=== PATIENT | female | born 1980 | race Caucasian/White ===

== ENCOUNTER → 2020-10-20 15:17 | Outpatient (CLI) | payer OTHER, SELFPAY ==
[2020-10-20 15:51] LABS: COVID19 -Nasal RAPID Negative (Negative)
== END ==
PROVIDERS: Visit Provider Obstetrics & Gynecology
DX: Z01.812 Encounter for preprocedural laboratory examination (principal); Z20.822 Contact with and (suspected) exposure to COVID-19
CPT/HCPCS: 87635

== ENCOUNTER 2020-10-21 06:45 | Day surgery (SDC) | payer OTHER, SELFPAY ==
[2020-10-21] VITALS (16 sets, daily range): BP systolic 117–146; BP diastolic 57–93; PULSE 55–82; RESP 12–76; TEMP 35.9–36.9; O2SAT 85–100; BMI 26.9
--- NOTE | 2020-10-21 | PATH_ITS ---
[facility] Accession Number: [id number] . 01 Material submitted: . uterus - UTERUS, BILATERAL FALLOPIAN TUBES AND OVARIES . 02 Diagnosis: Uterus, Bilateral Fallopian Tubes and Ovaries, Supracervical Hysterectomy and Bilateral Salpingo-oophorectomy: 1. Bilateral ovaries with hemorrhagic corpus luteum cysts. 2. Inactive/noncycling endometrium. 3. Bilateral fallopian tubes with no diagnostic abnormality. 4. No evidence of atypia or malignancy. [facility] 10/26/2020 1409 Local . 02 Electronically signed: . Linda Ayoub MD, Pathologist NPI- [id number] . 01 Gross description: . The specimen is received in formalin, labeled uterus, bilateral tubes and ovaries, and consists of a 93 g, fragmented uterus measuring 10.0 x 8.0 x 4.0 cm in aggregate. A cervix is not identified. The serosa is mukherjee-pink and smooth. The endometrium is mukherjee-pink and measures 0.1 cm in thickness. The myometrium is mukherjee-pink and trabeculated. Also received are bilateral fallopian tubes and ovaries. One ovary measures 3.5 x 1.2 x 1.0 cm. The other ovary measures 3.8 x 2.2 x 1.5 cm. The external surfaces are mukherjee and cerebriform. The larger ovary has an area of disruption. Sectioning reveals multiple cysts ranging from 0.2 cm to 2.2 cm. The larger ovary displays the largest cyst, which has a mukherjee-pink, granular inner lining. No papillary excrescences are identified. The fallopian tube measures 5.5 cm in length by 1.0 cm in diameter and 6.2 cm in length by 1.2 cm in diameter. The serosa is mukherjee-pink and smooth with multiple paratubal cysts measuring 0.1 cm. Sectioning reveals a mukherjee mucosa and a stellate lumen measuring up to 0.5 cm in diameter. Tack Cleaner sections are submitted: . A1: Presumed lower uterine segment. A2-A3: One full-thickness bisected cross-section. A4: Endomyometrium. A5: Tack Cleaner smaller ovary. A6-A7: Tack Cleaner attached fallopian tube, central cross-sections and bisected fimbria. A8-A10: Tack Cleaner cyst from larger ovary. A11-A13: Attached fallopian tube, central cross-sections, and bisected fimbria. ([id number]) /FRR 10/23/2020 [facility]9 Local . 02 Pathologist provided ICD-10: C50.912 . 02 CPT . 273897 Performed at: 01 [facility] [address] [id number] MD Bogdan Gamble MD Phone: [phone] Performed at: 02 [facility] [address] [place] [id number] MD Linda Ayoub MD Phone: [phone]
[2020-10-21] MEDS: ACETAMINOPHEN 325 MG TABLET 975 MG PO (07:21)
[2020-10-21] MEDS: LACTATED RINGERS 1,000 ML 42 ML IV ×2 (07:40→09:27)
--- NOTE | 2020-10-21 07:47 | PM.PREOP ---
Pre-operative Note COVID-19 COVID-19 status: Negative Result date/Date tested (Pos, Neg/Pending): 10/20/20 Interval Note History & Physical reviewed/Exam performed by Physician: No Changes to H&P: No H&P completed within 30 days and has changed as indicated here:: 10/20/20
[2020-10-21] MEDS: CEFAZOLIN 2 GM/100 ML FROZ.PIGGY IV (07:50)
[2020-10-21] MEDS: BUPIVACAINE 0.25% W/ EPI (PF) 10 ML VIAL 30 ML INJ (08:32)
[2020-10-21] MEDS: ROPIVACAINE 0.2% PF 2 MG/ML 10ML AMP 20 ML INJ (08:34)
--- NOTE | 2020-10-21 08:50 | SUR.OPER ---
Lithotomy on padded OR bed. [place] Pad Positioner under torso. Head on pillow, arms padded and tucked at sides. Legs secured in padded yellow fins stirrups.
--- NOTE | 2020-10-21 09:40 | P.OP_ITS ---
Operative Date/Time/Diagnoses Date of procedure: 10/21/20 Time of procedure: 09:41 Pre-op diagnosis: Breast cancer ER/FL positive On tamoxifen therapy Post-op diagnosis: same Procedure & Clinicians Procedure: Procedures Operation Date: 10/21/20 07:45 Actual Procedures Side Surgeon p Laparoscopic Supracervical Hysterectomy W/Bilateral Salpingo-oophorectomy Raven Shah MD Indications: Breast cancer ER/FL positive On tamoxifen therapy Surgeon: Raven Shah Healthcare Technician: Lana Stockton Anesthesia Type: General and Local Operative Notes Findings: Seven week size anteverted uterus Normal tubes bilaterally Left ovarian cyst Normal right ovary Normal appendix Normal liver and gallbladder Small pouch like protrusion from the cecum Closure Type: primary Specimen(s): left tube & ovary, right tube & ovary and uterus Applied: catheter (Removed at the end of the case) Estimated blood loss (mL): 75 Blood products transfused: none Procedure in detail: The patient was taken to the operating room where she was placed in the dorsal supine position. After adequate general endotracheal anesthesia was achieved, she was placed in the dorsal lithotomy position, and prepped and draped in the usual sterile fashion. A timeout was performed. A bivalve speculum was placed into the vagina and the anterior lip of the cervix grasped with a single-tooth tenaculum. The cervical os was sequentially dilated until the ZUMI uterine manipulator could pass easily into the endometrial cavity. The single-tooth tenaculum was removed from the anterior lip of the cervix, and the bivalve speculum was removed from the vagina. Attention was then turned to the abdomen where 6 mL of quarter percent Marcaine with epinephrine were injected in the umbilical fold. A 5 mm incision was made. The veress needle was placed into the peritoneal cavity, and its placement confirmed by aspiration and drop test. The veress needle was removed. A 5 mm trocar was placed without difficulty. 2 other incisions were made 4 cm lateral to the umbilicus after 5 mL of quarter percent Marcaine with epinephrine were injected. These were 5 mm incisions. Two, 5 mm trochars were placed under direct visualization. The right tube and ovary were grasped with an atraumatic grasper. Using the plasma kinetic with settings of 40 W the mesosalpinx was cauterized and cut all the way down to the cornua of the uterus. The cornua of the uterus was then grasped with an atraumatic grasper. The utero-ovarian ligaments were cauterized and cut. The round ligament and broad ligament were cauterized and cut with plasma kinetic. Hemostasis was achieved. The bladder flap was created using the plasma kinetic with cautery and cut assisted across. The uterine arteries on the right side were extensively cauterized with plasma kinetic. All of this was repeated on the left side. The remainder of the bladder flap was created using the plasma kinetic, and the bladder taken down off the lower uterine segment and cervix. The Zumi uterine manipulator was removed from the uterus and a moistened sponge stick was placed into the vagina. Using the L[place]oop, the cervix was amputated from the uterus 2 cm above the uterosacral ligaments. There was a small amount of bleeding noted from the posterior edge of the cervix, and this was cauterized for hemostasis. The endocervical canal was extensively cauterized with the PlasmaKinetic. 6 mL of quarter percent Marcaine with epinephrine were injected above the pubic symphysis. A 12mm incision was made. A 12 mm trocar was placed under direct visualization. An Endobag was placed through the suprapubic trocar and the uterus, tubes, and ovaries were placed into the Endobag. The bag was closed. The trocar was removed. The edges of the bag were brought up through the skin. An Dimitrios was placed. The uterus tubes, and ovaries were morcellated in approximately 13 pieces. The Endobag was removed from the peritoneal cavity with the Dimitrios. The fascia was closed on the suprapubic incision with 0 Vicryl. The abdomen was re-insufflated. The pelvis was copiously irrigated with warm normal saline. No bleeding was noted. 20 mL of 0.2% ropivacaine were placed over the pelvic pedicles. The instruments were removed from the abdomen. The CO2 was allowed to escape. All of the incisions were closed with 4-0 Biosyn in a subcuticular fashion. Steri strips, 2x2's and op sites were placed over the incisions. The moistened sponge stick was removed from the vagina. Sponge, lap, and instrument counts were correct x 2. The patient tolerated the procedure well, was taken to PACU in stable condition. The marketing support assistant during this case did the right side of the uterus, and retracted for the left side of the uterus. She retracted the uterus while the Chiquita loop was being deployed. She placed the uterus into the endobag. She retracted as the fascia was extended on the suprapubic incision. She assisted in retraction with morcellation of the uterus. She retracted the bowel away from the pelvis with irrigation, and ropivacaine placement. Complications: none Post-operative Condition: stable Disposition: PACU Plan for aftercare: To Acute Care after Recovery
[2020-10-21] MEDS: hydrOXYzine pamoate 25 MG CAPSULE PO (10:08)
[2020-10-21] MEDS: OXYCODONE IR 5 MG TABLET PO ×2 (10:08→22:06)
[2020-10-21] MEDS: ONDANSETRON 4 MG/2 ML INJ IV (10:08)
[2020-10-21] MEDS: LACTATED RINGERS 1,000 ML 100 ML IV ×2 (11:26→21:05)
--- NOTE | 2020-10-21 12:37 | PC.NURSE ---
Assumed care of patient from PACU. Patient A/O x 4. Denies pain at this time. Allyvn x 4 intact. Abdomen soft, tender. Patient splinting with pillow to get OOB and with cough. LR @ 100cc/hr infusing in R wrist. Pulses equal bilaterally, lungs CTA, patient at 100% on RA. Voided clear, yellow urine at 1230. Drinking fluids, general diet ordered. Patient denies N/V at this time. BT active x 4. Call light in reach. Mother in law bedside.
[2020-10-21] MEDS: ACETAMINOPHEN 325 MG TABLET 650 MG PO ×2 (13:42→17:33)
[2020-10-21] MEDS: KETOROLAC 30 MG/ML VIAL IV ×2 (13:42→17:34)
[2020-10-21] MEDS: DOCUSATE 100 MG CAPSULE PO (21:04)
[2020-10-22 00:17] VITALS: BP 131/66; PULSE 69; RESP 16; TEMP 36.7; O2SAT 97
[2020-10-22] MEDS: ACETAMINOPHEN 325 MG TABLET 650 MG PO ×2 (00:22→05:46)
[2020-10-22] MEDS: KETOROLAC 30 MG/ML VIAL IV ×2 (00:22→05:46)
--- NOTE | 2020-10-22 03:29 | PC.NURSE ---
0033: patient is alert and oriented. Breath sounds CTA with RA sat of 97%. HRR. Denies nausea. BT present and reports she is passing flatus. Abdomen mildly distended and tender on right side of abdomen but denies pain at this time; has ice pack on abdomen. States she has been urinating with some frequency and urgency but denies dysuria. Is independent with mobility. Allevyn dressings x 4 to abdomen are all intact with spots of dark drainage on upper middle Allevyn dressing. Refusing SCD's as states she is unable to sleep with them on; reminded to ankle wave and patient verbalizes understanding. States she had some earlier numbness in right LE but states it is now resolved. Fall risk score is moderate; patient instructed to call for assistance if experiencing any dizziness, lightheadedness or weakness when getting out of bed and she verbalizes understanding.
[2020-10-22] MEDS: DOCUSATE 100 MG CAPSULE PO (05:00)
[2020-10-22 05:02] VITALS: BP 132/87; PULSE 65; RESP 14; TEMP 36.9; O2SAT 98
[2020-10-22] MEDS: LACTATED RINGERS 1,000 ML 100 ML IV (05:56)
[2020-10-22 07:30] VITALS: BP 135/81; PULSE 68; RESP 18; TEMP 36.9; O2SAT 98
--- NOTE | 2020-10-22 10:36 | PC.NURSE ---
Patient ambulating in the room independently this AM. A/O x 4, denies abdominal pain, just intermittant pressure in the RUQ. Patient states she feels constipated. Passing flatus, BT active x 4. Voided 700 cc, clear, yellow urine. Tolerating food and fluids. Denies N/V. Dressings x 4 are CDI. Call light in reach.
--- NOTE | 2020-10-22 10:47 | PC.NURSE ---
Discharge note: Patient discharge home per MD order. Discharge instructions given to patient, discussed importance of F/U with Dr. Shah on November 09, dressing care, new medication Rx, and s/sx of infection. Patient dressed self independently in room, voiding without difficulty. Home via private vehicle.
--- NOTE | 2020-10-22 12:12 | CM.IDA ---
Initial DCP Assessment Note Pt is a 40 yo female, resident of [place], now POD#1 from Laparoscopic Supracervical Hysterectomy W/Bilateral Salpingo-oophorectomy by Dr Shah. PMH includes breast cancer PCP: Not listed Payer: [employer] Patient discussed in multidisciplinary rounds this morning, likely to DC home today, no needs from this FISH ROE PROCESSOR. Attempted assessment and patient was walking out of her room, agitated, RN encouraged her to wait for w/c and SHEET METAL PATTERN CUTTER to escort her to her vehicle and she inevitably agreed. DC home w/no needs from this FISH ROE PROCESSOR, close outpatient f/u WILLIAMS Banerjee
--- NOTE | 2020-10-22 13:47 | P.DS_ITS ---
History of Present Illness History of Present Illness Date Patient Seen: 10/22/20 Time Patient Seen: 09:30 Chief complaint: SDC Narrative: Patient is a 40-year-old who underwent an LSCH/BSO on October 21, 2020. This was due to breast cancer that is ER/NC positive on tamoxifen. She underwent this procedure without complication. Her postoperative course was unremarkable. She is ambulating independently. She has voided without the catheter. No nausea or vomiting. She is tolerating a diet, her pain is well controlled. Discharge Providers Provider Date of admission: October 21, 2020 Discharge Date: 10/22/20 Primary care physician: Doctor Santi MD Discharge provider: Raven Shah MD Summary Hospital Course Discharge Diagnosis: Breast cancer ER/NC positive On tamoxifen therapy Status post laparoscopic supracervical hysterectomy with bilateral salpingo- oophorectomy Hospital Course: Patient is a 40-year-old who underwent a laparoscopic supracervical hysterectomy with bilateral salpingo-oophorectomy without complication. Her postoperative course was unremarkable. On postop day # 1 she is tolerating a diet, no nausea or vomiting, ambulating independently, pain well controlled, and voiding without the catheter. She is discharged home. Status at Discharge Cognitive/behavioral status at discharge: oriented Functional status at discharge: independent ambulation Overall status at discharge: patient is progressing back to baseline Time Spent with Patient Time spent: Less than 30 minutes Exam Vital Signs (past 8 hours): - 10/22/20 07:30 Temperature 98.4 F Pulse Rate 68 Respiratory Rate 18 Blood Pressure 135/81 Pulse Oximetry 98 Oxygen Delivery Method Room Air Oxygen Flow Rate 0 Narrative Exam Narrative: Generally: Patient is sitting up in bed, no acute distress Lungs: Clear to auscultation bilaterally Cardiovascular: Regular rate and rhythm Abdomen: Soft and flat. Incisions: Clean dry and intact with dressings. There is a small amount of dried blood on the umbilical dressing. Extremities: Negative [facility] Surgical History (Updated 09/16/20 @ 21:48 by Becky Lynch) Anesthesia History of lymph node dissection of left axilla (~10/20/19) History of surgery (~04/07/20) History of varicose vein ligation (~01/07/16) S/P mastectomy, bilateral (~09/04/19) Family History (Updated 09/16/20 @ 21:49 by Becky Lynch) Father Melanoma Mother Ronni's disease Social History household members: spouse Smoking Status: Current every day smoker alcohol intake: current Discharge Assessment & Plan Assessment and Plan Assessment: Postop day # 1 status post LSCH/BSO, doing very well Plan of Treatment: Discharged home Follow-up in 2 weeks for incision check Discharge Plan Discharge Plan Patient Disposition: Home Provider Discharge Comment: Call with fever, chills, redness or drainage around incisions or bleeding vaginally more than spotty to light Ibuprofen 600mg every 6 hours Tylenol 650 mg every 6 hours Discharge orders & Medications Discharge Orders: Discharge (Order); Ordered 10/22/20 Ordered By: Raven Shah Prescriptions: New oxycodone 5 mg tablet 5 mg PO Q4H PRN (Reason: pain) Qty: 20 RF: 0 Continued tamoxifen 10 mg tablet 10 mg PO DAILY RF: 0 aspirin 81 mg tablet,delayed release (DR/EC) 81 mg PO DAILY RF: 0 Follow up/Referrals: Raven Shah MD [Physician] - 2 Weeks (2 wk post op check in person) Diet/Activity/Treatments Diet: Regular Skin/Wound/Dressing Care Report to your healthcare provider any signs of infection, such as:: chills, fever, increased pain, unusual drainage and unusual redness Dressing: Remove outer pink dressings with attached guaze in 3 days after your daily shower Visit Report/Discharge Packet Instructions: DI for Hysterectomy, DI for Laparoscopy, Oxycodone Stand Alone Forms: Surgery Discharge Discharge Data Primary Care Provider: Miscellaneous,Doctor Attending Provider: Raven Shah
== END 2020-10-22 11:00 | disposition home or self-care (01) ==
LOC: OR 06:50 → AC 10:39
PROVIDERS: Referring Provider Obstetrics & Gynecology; Visit Provider Obstetrics & Gynecology
PROC: 0UT94ZL Resection of Uterus, Supracervical, Percutaneous Endoscopic Approach (ICD-10-PCS; CPT 58542; principal; 2020-10-21 07:45)
DX: Z40.02 Encounter for prophylactic removal of ovary(s) (principal); C50.912 Malignant neoplasm of unspecified site of left female breast; Z79.810 Long term (current) use of selective estrogen receptor modulators (SERMs); Z17.0 Estrogen receptor positive status [ER+]; F41.9 Anxiety disorder, unspecified; F17.210 Nicotine dependence, cigarettes, uncomplicated; N83.12 Corpus luteum cyst of left ovary; N83.11 Corpus luteum cyst of right ovary
CPT/HCPCS: 58542; 82962; J0330; J0690; J1100; J1885; J2250; J2405; J2704; J2795; J3010

== ENCOUNTER → 2020-12-08 09:46 | Outpatient (CLI) | payer OTHER, SELFPAY ==
[2020-10-26 10:16] VITALS: BMI 26.9
[2020-12-08 10:22] LABS: COVID19 -Nasal RAPID Negative (Negative)
== END ==
PROVIDERS: Visit Provider Surgery
DX: Z20.822 Contact with and (suspected) exposure to COVID-19 (principal); Z01.812 Encounter for preprocedural laboratory examination
CPT/HCPCS: 87635; C9803

== ENCOUNTER 2020-12-09 08:30 | Day surgery (SDC) | payer OTHER, SELFPAY ==
[2020-10-26 10:16] VITALS: BMI 26.9
[2020-12-09] VITALS (16 sets, daily range): BP systolic 102–141; BP diastolic 59–95; PULSE 55–77; RESP 12–16; TEMP 36.3–36.8; O2SAT 96–100
--- NOTE | 2020-12-09 09:07 | P.HP_ITS ---
History of Present Illness History of Present Illness Date Patient Seen: 12/09/20 Time Patient Seen: 09:07 Chief complaint: [facility] Narrative: Colon abnormality suspected from previous workup. No family history for colon cancer and no symptoms of GI nature. Patient History Medical History Hx of breast cancer Surgical History Anesthesia History of lymph node dissection of left axilla (~10/20/19) History of surgery (~04/07/20) History of varicose vein ligation (~01/07/16) S/P mastectomy, bilateral (~09/04/19) Family & Social History Family History Father Melanoma Mother Pickaway's disease Social History: household members spouse,children Tobacco & Substance use: Tobacco type cigarettes Smoking Status Current every day smoker alcohol intake current alcohol intake frequency a few times a week Substance Use Type marijuana Meds Home Medications and Allergies Home Medications Medication Instructions Recorded Confirmed Type aspirin 81 mg tablet,delayed 81 mg PO DAILY 09/14/20 12/09/20 History release tamoxifen 10 mg tablet 10 mg PO DAILY tab 09/14/20 12/09/20 History bimatoprost 1 drp EYE-BOTH DAILY PRN 12/09/20 12/09/20 History Allergies Allergy/AdvReac Type Severity Reaction Status Date / Time ranitidine [From Zantac] Allergy Intermediate Hives Verified 12/09/20 08:56 latex Allergy Mild Rash Verified 12/09/20 08:56 Penicillins AdvReac ITCHING Verified 12/09/20 08:56 Exam Const General: cooperative and healthy appearing [facility] Head: normal to inspection Nose: external nose normal Face and sinus: normal facial exam Eyes Sclera: sclerae normal Neck Neck: trachea midline Chest Chest: normal inspection of the chest Resp Effort & Inspection: normal respiratory effort and able to speak in complete sentences Auscultation: clear to auscultation bilaterally Cardio Rate: tachycardic Rhythm: regular rhythm GI Inspection: normal to inspection Palpation: soft Other: I do not feel a mass in the right lower quadrant that patient does Skin General: no rashes or lesions noted Hair: normal Neuro General: patient alert and patient oriented x3 Cognition: normal cognition Speech: speech normal Extrem General: normal to inspection and full ROM Psych Appearance: grossly normal Judgment: judgment good Assessment & Plan Assessment & Plan narrative: Colonoscopy to follow up on intra operative abnormality seen. COVID-19 COVID-19 status: Negative
[2020-12-09] MEDS: LACTATED RINGERS 1,000 ML 42 ML IV (09:10)
[2020-12-09] MEDS: diphenhydrAMINE 50 MG/ML VIAL IV (09:47)
[2020-12-09] MEDS: ONDANSETRON 4 MG/2 ML INJ IV (09:49)
--- NOTE | 2020-12-09 10:05 | P.OP.ENDO_ITS ---
Operative Date/Time/Diagnoses Date of procedure: 12/09/20 Time of procedure: 10:05 Pre-op diagnosis: Mass on Right colon seen at time of Lap hysterectomy Post-op diagnosis: same Procedure & Clinicians Study performed: colonoscopy with moderate sedation switched to general Same procedure as scheduled: Yes Indications: Mass seen during previous surgery Surgeon: Karen Canales Procedure Notes SCOAP/Timeout: done Procedure in detail: Preop diagnosis: Mass seen on the right colon during laparoscopic hysterectomy Postop diagnosis: Same Operative procedure: colonoscopy with moderate sedation switched to general a nesthetic Surgeon: Laurie Canales MD Findings. No polyps or diverticulosis with the exception of a moderate-sized diverticuli in the cecum. Procedure: Patient placed in lateral position. Rectal exam performed showing normal tone no masses. Colonoscope inserted into the rectum and advanced to the hepatic flexure. At that time we had exceeded comfort levels with procedural medications for moderate sedation. That being Versed 12, fentanyl 200, Benadryl 50 mg. Anesthesia risks she does from the sedation, we were able to proceed to the cecum with minimal difficulty. At the cecum it was noted a moderate-sized diverticulum which was photographed as well. No other abnormalities. Insufflation and extraction of the scope had the above findings. Retroflexed included in the rectum. Impression normal colonoscopy. Incidental finding of diverticulum in the cecum which could explain the areas seen intraoperative. Plan: Repeat colonoscopy in 10 years unless otherwise indicated by change in clinical condition or family history Findings: diverticulitis Specimen(s): none sent Complications: none Impression: Moderate size diverticulum in cecum c/w anatomy seen intraoperative. Repeat colonoscopy in 10 years for screening purpose. No polyps or descending diverticula. Post-procedure Recommendations: Colonscopy in 10 years, Continue medication(s) and Other recommendation (follow up with Dr. Lewis 1-2 weeks) Plan for aftercare: home Follow up: weeks Disposition: PACU
[2020-12-09] MEDS: MIDAZOLAM 5 MG/5 ML VIAL IV (10:09)
[2020-12-09] MEDS: fentaNYL 250 MCG/5 ML INJ IV (10:09)
== END 2020-12-09 11:35 | disposition home or self-care (01) ==
PROVIDERS: Referring Provider Surgery; Visit Provider Surgery
PROC: 0DJD8ZZ Inspection of Lower Intestinal Tract, Via Natural or Artificial Opening Endoscopic (ICD-10-PCS; CPT 45378; principal; 2020-12-09 09:30)
DX: K57.30 Diverticulosis of large intestine without perforation or abscess without bleeding (principal); F17.210 Nicotine dependence, cigarettes, uncomplicated
CPT/HCPCS: 45378; J1200; J2250; J2405; J3010